=== PATIENT | female | born 1995 | race American Indian/Alaskan Native ===

== ENCOUNTER 2019-12-28 10:53 | Outpatient (CLI) | payer MEDICAID ==
[2019-12-28] MEDS ORDERED: LACTATED RINGERS 500 ML IV ONE (11:22)
[2019-12-28 14:11] LABS: Hemoglobin 9.8 gm/dl (10.1-14.3); Mean Corpuscular HGB Conc 34 % (30-34); Mean Corpuscular Volume 95 fl (79-97); Platelet Count 166 K/mm3 (140-440); Red Blood Count 3.05 M/mm3 (3.65-5.03); Red Cell Distribution Width 12.8 % (13.2-15.2)
[2019-12-28 14:22] LABS: INR 1.04 (0.87-1.13)
[2019-12-28 14:23] LABS: Partial Thromboplastin Time 28.6 Sec. (24.2-36.6)
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
== END 2019-12-28 15:43 | disposition home or self-care (01) ==
LOC: TRG 10:53 → APU 10:55 → TRG 15:43
PROVIDERS: ATTEND Obstetrics & Gynecology
DX: O26.893 Other specified pregnancy related conditions, third trimester (principal); O47.03 False labor before 37 completed weeks of gestation, third trimester; R10.9 Unspecified abdominal pain; Z3A.30 30 weeks gestation of pregnancy
CPT/HCPCS: 36415; 59025; 76815; 76819; 85027; 85384; 85610; 85730